=== PATIENT | male | born 1955 ===

== ENCOUNTER 2017-12-28 09:41 | Outpatient (CLI) | payer OTHER ==
[~2017-12-28] VITALS: Ht 177.8 cm; Wt 77.1 kg
== END 2017-12-28 10:00 | disposition home or self-care (01) ==
LOC: OFIC 805 09:41
DX: H61.23 Impacted cerumen, bilateral (principal); H90.3 Sensorineural hearing loss, bilateral; M1A.9XX1 Chronic gout, unspecified, with tophus (tophi)

== ENCOUNTER 2021-05-11 13:57 | Outpatient (CLI) | payer OTHER | END 2021-05-11 14:18 | disposition home or self-care (01) | LOC: RAD 13:57 | PROVIDERS: ATTEND Orthopaedic Surgery | DX: M25.561 Pain in right knee (principal) ==

== ENCOUNTER 2021-06-22 14:24 | Outpatient (CLI) | payer OTHER | END 2021-06-22 14:25 | disposition home or self-care (01) | LOC: NUCLEAR 14:24 | PROVIDERS: ATTEND Orthopaedic Surgery | DX: M81.0 Age-related osteoporosis without current pathological fracture (principal) ==

== ENCOUNTER → 2021-09-04 10:45 | Outpatient (CLI) | payer OTHER | END | disposition home or self-care (01) | LOC: PPH VACUNA 10:45 | PROVIDERS: ATTEND Emergency Medicine Pediatric Emergency Medicine | DX: Z23 Encounter for immunization (principal) ==